=== PATIENT | male | born 2000 | race Two or more races ===

== ENCOUNTER 2019-12-18 20:39 | Emergency (ER) | payer MEDICAID ==
[~2019-12-18] VITALS: Ht 182.9 cm; Wt 177.0 kg
[2019-12-18 20:41] VITALS: BP 142/92
[2019-12-18] MEDS ORDERED: OXYcodone/APAP 5/325MG TABLET ONE (21:04)
[2019-12-18] MEDS ORDERED: AMOXICILLIN/CLAV 875-125MG TABLET ONE (21:08)
[2019-12-18] MEDS ORDERED: LIDOCAINE-MPF 1%, 5ML ONE (21:25)
[2019-12-18] MEDS ORDERED: AMOXICILLIN/CLAV 875-125MG TABLET PO ONE (21:30)
[2019-12-18] MEDS ORDERED: OXYcodone/APAP 5/325MG TABLET PO ONE (21:30)
== END 2019-12-18 22:18 | disposition home or self-care (01) ==
LOC: ED 21:57
DX: K02.9 Dental caries, unspecified (principal); K04.7 Periapical abscess without sinus; R00.0 Tachycardia, unspecified
CPT/HCPCS: 41800; 99284